=== PATIENT | male | born 1955 | race Caucasian/White ===

== ENCOUNTER 2017-01-27 06:05 | Emergency (ER) ==
[2017-01-27 06:19] VITALS: BP 172/84; TEMP 97.3; BMI 21.6
--- NOTE | 2017-01-27 06:49 | ED.PDOC ---
General Stated Complaint: Been having diarrhea on and off for 3-4 months, watery, some times undigetsed food, lately more cramps and notice red color, so worried and came for the evaluation. feels nausea. Time Seen by Physician: 06:47 Mode of Arrival: Walk-In Information Source: Patient Nursing and Triage Documentation Reviewed and Agree: Yes <OPAL ARNOLD - Last Filed: 01/27/17 06:52> Stated Complaint: c/o nausea today. Denies vomiting. Says has had sudden onsets of diarrhea intermittently for 3 weeks along with abdominal cramping. Says has changed diet recently.[ End ] <ROBINSON MARTINEZ JR - Last Filed: 01/27/17 07:40> ED Provider: Dr. ROBINSON MARTINEZ JR Chief Complaint: Nausea/Vomiting Primary Care Provider: HANNA RIOS GI Complaint Exam - Vomiting/Diarrhea Complaint/Exam Symptoms Are: Still present Episodes of Diarrhea Over Last 24 Hours: 3 Initial Severity: Moderate Current Severity: Moderate Character of Diarrhea: Reports: Watery Aggravating: Reports: Food, Liquids Alleviating: Reports: None Associated Signs and Symptoms: Reports: Cramping. Denies: Dizziness, Light- headedness, Melena, Hematemesis, Fever, Abdominal pain Non-GI Risk Factors: Reports: None Surgical Obstruction Risk Factors: Reports: None Related Surgical History: Reports: None Abdominal Findings: Absent: Pulsatile mass, Abdominal distention, Unequal femoral pulses Differential Diagnoses: Viral Gastroenteritis, Other (IBS) <OPAL ARNOLD - Last Filed: 01/27/17 06:52> Review of Systems - Review Of Systems Constitutional: Reports: No symptoms Eyes: Reports: No symptoms Ears, Nose, Mouth, Throat: Reports: No symptoms Respiratory: Reports: No symptoms Cardiac: Reports: No symptoms GI: Reports: Diarrhea, Nausea : Reports: No symptoms Musculoskeletal: Reports: No symptoms Skin: Reports: No symptoms Neurological: Reports: No symptoms Endocrine: Reports: No symptoms Hematologic/Lymphatic: Reports: No symptoms All Other Systems: Reviewed and Negative <OPAL ARNOLD - Last Filed: 01/27/17 06:52> Past Medical History - Past Medical History Previously Healthy: Yes Endocrine: Reports: Dyslipidemia Cardiovascular: Reports: Hypertension Respiratory: Reports: None Hematological: Reports: Other (blood clots.) Gastrointestinal: Reports: GERD Genitourinary: Reports: None Neuro/Psych: Reports: None Musculoskeletal: Reports: None Cancer: Reports: None - Surgical History General Surgical History: Reports: Other (surgery on left leg.) - Family History Family History: Reports: None - Social History Smoking Status: Current every day smoker Smoking Cessation Counseling Time: > 3 min - 10 min Hx Substance Use: No Alcohol Screening: None - Immunizations Tetanus Shot up to Date: Yes <OPAL ARNOLD - Last Filed: 01/27/17 06:52> - Past Medical History Genitourinary: Reports: Kidney stones (sinus ) <ROBINSON MARTINEZ JR - Last Filed: 01/27/17 07:40> Physical Exam - Physical Exam Appearance: Ill-appearing, No pain distress, Well-nourished Ill-appearing: Mild Eyes: RAFAEL, EOMI, Conjunctiva clear ENT: Ears normal, Nose normal, Oropharynx normal Respiratory: Airway patent, Breath sounds clear, Breath sounds equal, Respirations nonlabored Cardiovascular: RRR, Pulses normal, No rub, No murmur GI/: Soft, Nontender, No masses, Bowel sounds normal, No Organomegaly Musculoskeletal: Normal strength, ROM intact, No edema, No calf tenderness Skin: Warm, Dry, Normal color Neurological: Sensation intact, Motor intact, Reflexes intact, Cranial nerves intact, Alert, Oriented Psychiatric: Affect appropriate, Mood appropriate <OPAL ARNOLD - Last Filed: 01/27/17 06:52> Critical Care Note - Critical Care Note Total Time (mins): 0 <OPAL ARNOLD - Last Filed: 01/27/17 06:52> Course - Course Hematology/Chemistry: 01/27/17 06:55 01/27/17 06:55 <ROBINSON MARTINEZ JR - Last Filed: 01/27/17 07:40> - Course Orders, Labs, Meds: Lab Review 01/27/17 01/27/17 06:55 07:10 WBC 7.04 RBC 4.10 L Hgb 13.5 L Hct 40.1 L MCV 97.8 H MCH 32.9 H MCHC 33.7 RDW Coeff of Ariel 13.4 Plt Count 268 Immature Gran % (Auto) 0.1 Neut % (Auto) 65.8 Lymph % (Auto) 20.3 [place] % (Auto) 8.2 Eos % (Auto) 4.7 Baso % (Auto) 0.9 Reticulocyte % (Auto) 0.79 Immature Gran # (Auto) 0.0 Neut # 4.6 Lymph # 1.4 [place] # 0.6 Eos # 0.3 Baso # 0.1 Absolute Retic 0.0322 Retic Hgb Equivalent 37.0 PT 26.9 H INR 2.61 Sodium 140 Potassium 3.9 Chloride 105 Carbon Dioxide 27 Anion Gap 11.9 BUN 16 Creatinine 0.83 Estimated GFR (MDRD) 94.00 BUN/Creatinine Ratio 19.27 Glucose 102 Calcium 8.8 Total Bilirubin 0.31 AST 21 ALT 21 Alkaline Phosphatase 61 Total Protein 6.7 Albumin 3.9 Globulin 2.8 Albumin/Globulin Ratio 1.39 Urine Color Yellow Urine Clarity Clear Urine pH 6.5 Ur Specific [place] 1.010 Urine Protein Negative Urine Glucose (UA) Negative Urine Ketones Negative Urine Blood Trace-intact Urine Nitrite Negative Urine Bilirubin Negative Urine Urobilinogen 0.2 Ur Leukocyte Esterase Negative Urine Microscopic RBC 0-2 Ur Squamous Epith Cells Not present Orders Category Date Time Status CBC W/ AUTO DIFF Stat LAB 01/27/17 06:55 Completed COMPREHENSIVE METABOLIC PANEL Stat LAB 01/27/17 06:55 Completed FERRITIN Routine LAB 01/27/17 06:55 Received FOLATE Routine LAB 01/27/17 06:55 Received IRON AND TIBC Routine LAB 01/27/17 06:55 Received PT WITH INR DAILY@0600 LAB 01/28/17 06:00 Ordered PT WITH INR DAILY@0600 LAB 01/29/17 06:00 Ordered PT WITH INR DAILY@0600 LAB 01/30/17 06:00 Ordered PT WITH INR DAILY@0600 LAB 01/31/17 06:00 Ordered PT WITH INR DAILY@0600 LAB 02/01/17 06:00 Ordered PT WITH INR DAILY@0600 LAB 02/02/17 06:00 Ordered PT WITH INR DAILY@0600 LAB 02/03/17 06:00 Ordered PT WITH INR DAILY@0600 LAB 02/04/17 06:00 Ordered PT WITH INR DAILY@0600 LAB 02/05/17 06:00 Ordered PT WITH INR DAILY@0600 LAB 02/06/17 06:00 Ordered PT WITH INR DAILY@0600 LAB 02/07/17 06:00 Ordered PT WITH INR DAILY@0600 LAB 02/08/17 06:00 Ordered PT WITH INR DAILY@0600 LAB 02/09/17 06:00 Ordered PT WITH INR DAILY@0600 LAB 02/10/17 06:00 Ordered PT WITH INR DAILY@0600 LAB 02/11/17 06:00 Ordered PT WITH INR DAILY@0600 LAB 02/12/17 06:00 Ordered PT WITH INR DAILY@0600 LAB 02/13/17 06:00 Ordered PT WITH INR DAILY@0600 LAB 02/14/17 06:00 Ordered PT WITH INR DAILY@0600 LAB 02/15/17 06:00 Ordered PT WITH INR DAILY@0600 LAB 02/16/17 06:00 Ordered PT WITH INR Stat LAB 01/27/17 06:55 Completed RETIC COUNT Routine LAB 01/27/17 06:55 Completed TRANSFERRIN Routine LAB 01/27/17 06:55 Received URINALYSIS C & S IF INDICATED Stat LAB 01/27/17 07:10 Completed VITAMIN B12 Routine LAB 01/27/17 06:[address] ABDOMEN/PELVIS WO CONTRAST Stat RADS 01/27/17 06:46 Completed Vital Signs: Temp Pulse Resp BP Pulse Ox 01/27/17 06:08 97.3 F L 65 20 172/84 H 96 Departure - Departure Time of Disposition: 06:54 Pt referred to PMD for follow-up: Yes Disposition Discussed With: Patient <CLAYTONOPAL - Last Filed: 01/27/17 06:52> <ROBINSON MARTINEZ JR - Last Filed: 01/27/17 07:40> - Departure Discharge Problem: Diarrhea Qualifiers: Diarrhea type: unspecified type Qualifier Code: (R19.7) Diarrhea, unspecified Instructions: Chronic Diarrhea (ED) Additional Instructions: Will treat it as infectious diarrhea now. Increase fibre diet Increase hydration needs f/u with PMD (may use peptobismol and kaopectate for loose stools) very mild anemia, discuss with your physician anemia studies are pending (follow up with PMD discuss gastroenterology evaluation) Prescriptions: Metronidazole [Flagyl] 500 mg PO Q8HR #30 tablet Ondansetron HCl [Zofran] 4 mg PO TID #14 tablet Allergies/Adverse Reactions: Allergies No Known Allergies Allergy (Verified 01/27/17 06:18) Home Medications: Ambulatory Orders Clopidogrel Bisulfate [Plavix] 75 mg PO DAILY 11/25/14 Pravastatin Sodium [Pravachol] 40 mg PO DAILY 11/25/14 Warfarin Sodium [Coumadin] 7.5 mg PO DAILY 11/25/14 Losartan Potassium [Cozaar] 50 mg PO DAILY 01/27/17 Metronidazole [Flagyl] 500 mg PO Q8HR #30 tablet 01/27/17 Ondansetron HCl [Zofran] 4 mg PO TID #14 tablet 01/27/17 Pantoprazole Sodium [Protonix] 40 mg PO DAILY 01/27/17
[2017-01-27 07:02] LABS: BASOPHILS # (AUTO) 0.1 K/uL (0-0.2); BASOPHILS % (AUTO) 0.9 % (0.0-3.0); EOSINOPHILS # (AUTO) 0.3 K/ul (0.0-0.7); EOSINOPHILS % (AUTO) 4.7 % (0.0-7.0); HEMATOCRIT 40.1 % (42.0-52.0); HEMOGLOBIN 13.5 g/dl (14.0-18.0); IMMATURE GRANULOCYTE % (AUTO) 0.1 % (0.0-5.0); LYMPHOCYTES # (AUTO) 1.4 K/uL (0.60-3.4); LYMPHOCYTES % (AUTO) 20.3 (10.0-50.0); MEAN CORPUSCULAR HEMOGLOBIN 32.9 pg (27.0-31.0); MEAN CORPUSCULAR HGB CONC 33.7 (31.8-35.4); MEAN CORPUSCULAR VOLUME 97.8 fl (80.0-94.0); MONOCYTES # (AUTO) 0.6 K/uL (0.4-2.0); MONOCYTES % (AUTO) 8.2 (0-10); NEUTROPHILS # (AUTO) 4.6 K/ul (2.0-6.9); NEUTROPHILS % (AUTO) 65.8; PLATELET COUNT 268 10^3/uL (140-440); WHITE BLOOD COUNT 7.04 K/ul (4.2-10.2)
[2017-01-27 07:14] LABS: PROTHROMBIN TIME 26.9 SEC (9.3-11.0)
[2017-01-27 07:21] LABS: ALBUMIN 3.9 g/dL (3.4-5.0); ALBUMIN/GLOBULIN RATIO 1.39; ANION GAP 11.9; BILIRUBIN,TOTAL 0.31 mg/dL (0.00-1.20); BUN/CREATININE RATIO 19.27; CALCIUM 8.8 mg/dL (8.2-10.2); CREATININE 0.83 mg/dL (0.60-1.10); POTASSIUM 3.9 mmol/L (3.5-5.1); TOTAL PROTEIN 6.7 g/dL (5.8-8.1)
[2017-01-27 07:22] LABS: IMMATURE RETIC FRACTION 5.9; RETICULOCYTE % 0.79 %
--- NOTE | 2017-01-27 07:23 | CT ---
EXAM: CT abdomen pelvis without contrast HISTORY: Diarrhea for 3 weeks with abdominal cramping and history of hernia repair COMPARISON: None TECHNIQUE: Serial axial images of the abdomen pelvis were performed from the lung bases through the inferior pelvis without contrast. These were viewed in multiple planes. FINDINGS: Lung bases are clear. Evaluation is limited due to lack of contrast. The liver is unremarkable. There is low attenuation adjacent to the falciform ligament suggestive of focal fatty infiltration. Gallbladder is mildly d istended with no visualized stones or inflammation. There is a fat-containing right adrenal nodule measuring 1.8 cm on axial image 17 and coronal image 55. There is minimal nodularity of the left ad renal gland. The left kidney and right kidney are unremarkable. The spleen is unremarkable. The p ancreas is unremarkable. The stomach is normal. The small bowel in the abdomen pelvis is unremarkable. The colon is unremarkable. The appendix is incompletely evaluated with portions of small tubular structure containing gas consistent with a nor mal appendix. No secondary signs of appendicitis are present. There is scattered moderate atherosc lerotic disease with a left iliac stent present. Urinary bladder is distended. The prostate is unr emarkable with central calcifications. There is no fluid or enlarged lymph nodes. The osseous stru ctures demonstrate degenerative disease of the lumbosacral spine. There are surgical changes and cli ps in the left groin with endovascular stent present. IMPRESSION: 1. No acute intra-abdominal or pelvic process to account for patient's symptoms. 2. Fat containing right adrenal nodule most consistent with an adrenal myelolipoma. 3. There are are surgical changes in the left groin with endovascular stent present and moderate fartun cific atherosclerotic disease
[2017-01-27 07:24] LABS: BILIRUBIN,URINE Negative (NEGATIVE); KETONES,URINE Negative (NEGATIVE); LEUKOCYTE ESTERASE ,URINE Negative (NEGATIVE); NITRITE,URINE Negative (NEGATIVE); PH,URINE 6.5 (5-9); PROTEIN,URINE Negative (NEGATIVE); URINE, BLOOD Trace-intact (NEGATIVE)
[2017-01-27 07:25] LABS: ADD URINE MICROSCOPIC YES
[2017-01-27 08:07] LABS: FERRITIN 119.66 ng/mL (21.81-274.66); FOLATE 12.1 ng/mL (3.1-20.5)
== END 2017-01-27 08:25 | disposition home or self-care (01) ==
LOC: ED 06:05
DX: R19.7 Diarrhea, unspecified (principal); R11.0 Nausea; R10.9 Unspecified abdominal pain; D64.9 Anemia, unspecified; Z79.01 Long term (current) use of anticoagulants; Z79.899 Other long term (current) drug therapy; F17.210 Nicotine dependence, cigarettes, uncomplicated
CPT/HCPCS: 36415; 80053; 81001; 82607; 82728; 82746; 83540; 83550; 84466; 85025; 85045; 85610; 99283

== ENCOUNTER 2017-02-12 15:57 | Outpatient (CLI) | END 2017-02-12 15:58 | disposition home or self-care (01) | LOC: LAB 15:57 | PROVIDERS: ATTEND Family Medicine | DX: R19.7 Diarrhea, unspecified (principal) | CPT/HCPCS: 87015; 87045; 87493; 87899 ==

== ENCOUNTER 2017-05-12 14:28 | Outpatient (CLI) ==
--- NOTE | 2017-05-12 16:25 | MRI ---
EXAM: MRI cervical spine without IV contrast. DATE: 05/12/2017. HISTORY: Neck pain, headaches. TECHNIQUE: Sagittal and axial T1W and T2W sequences of the cervical spine along with sagittal IR an d coronal T2W sequences were obtained using 1.2 Mayte magnet. No IV contrast. COMPARISON: None. FINDINGS: There is no cervical scoliosis. Straightening of the mid cervical lordosis is evident. No acute c-spine fracture, osseous malignancy, or jumped facet is detected. A 1 mm anterior subluxa tion of C3 relative to C4 is noted. Tiny, chronic Schmorl's node is demonstrated at the T2 superior endplate. Minor anterior wedge configuration the C5 vertebral body is chronic. Cervical vertebra are otherwise normal in height. Minor/mild disc space narrowing is demonstrated at C4-5 and C5-6. C ervical and upper thoracic spinal cord reveals no definitive syrinx, cord edema, myelomalacia, or ne oplasm. Surgical hardware (cerclage wires) cause artifacts in the spinous processes of C3, C4, C5, and C6. Visible brainstem and cerebellum are unremarkable. No mastoid effusion or mastoiditis is seen. Vis ible thyroid, submandibular, and parotid glands are normal. No cervical lymphadenopathy, suspicious neck mass, apical lung mass, pneumonia, or pleural effusion is detected. Segmental analysis: C2-3: Mild right and mild/moderate left foraminal stenoses are due to uncinate hypertrophy and mild left facet arthropathy. No central canal stenosis. C3-4: Minimal anterior subluxation of C3 and small pseudodisc bulge do not cause cord compression. Canal is 8.2 mm AP. Moderate right and marked left foraminal stenoses due to uncinate hypertrophy and mild/moderate left facet arthropathy. C4-5: Minimal posterior disc bulge does not contact the cord. Canal is 10.2 mm AP. Mild right for aminal stenosis is due to uncinate hypertrophy. Metal susceptibility artifact is identified near th e spinous processes of C4 and C5. C5-6: Minimal posterior disc bulge does not contact the cord. Canal is 10.6 mm AP. Each foramen i s patent. Analysis of the be artifact is identified near the spinous processes of C5 and C6. C6-7: Minor posterior disc bulge does not contact cord. Canal is 8.6 mm AP. Mild left foraminal s tenosis is due to uncinate hypertrophy. C7-T1: Small posterior disc/osteophyte complex (1.6 mm AP) does not contact the cord. Canal is 9 m m AP. Mild right and mild/moderate will left foraminal stenoses are due to uncinate hypertrophy and minor left facet arthropathy. T1-2: Minor posterior disc bulge does not cause cord compression or central stenosis. Minor/mild b ilateral foraminal stenoses due to facet disease. IMPRESSIONS: 1. C-spine uncinate hypertrophy, mild facet arthropathy, and multilevel DDD. 2. Mild central canal stenoses at C3-4, C6-7, and C7-T1. 3. Multilevel foraminal stenoses as described. 4. Posterior cerclage wires at C3, C4, C5, C6.
== END 2017-05-12 14:29 | disposition home or self-care (01) ==
LOC: RAD 14:28
PROVIDERS: ATTEND Family Medicine
DX: R51 Headache (principal); M54.2 Cervicalgia

== ENCOUNTER 2017-05-14 16:07 | Outpatient (CLI) | END 2017-05-14 16:08 | disposition home or self-care (01) | LOC: CAR 16:07 | PROVIDERS: ATTEND Family Medicine | DX: G47.33 Obstructive sleep apnea (adult) (pediatric) (principal); R51 Headache; M54.2 Cervicalgia; I10 Essential (primary) hypertension | CPT/HCPCS: 95810 ==

== ENCOUNTER 2017-06-26 14:45 | Outpatient (CLI) | END 2017-06-26 14:46 | disposition home or self-care (01) | LOC: LAB 14:45 | PROVIDERS: ATTEND Family Medicine | DX: R19.5 Other fecal abnormalities (principal) | CPT/HCPCS: 87493 ==

== ENCOUNTER 2017-10-25 14:52 | Outpatient (CLI) | END 2017-10-25 14:53 | disposition home or self-care (01) | LOC: LAB 14:52 | PROVIDERS: ATTEND Family Medicine | DX: R19.7 Diarrhea, unspecified (principal) | CPT/HCPCS: 36415 ==